=== PATIENT | male | born 1980 | race Two or more races ===

== ENCOUNTER 2019-04-06 20:44 | Emergency (ER) | payer OTHER ==
[~2019-04-06] VITALS: Ht 170.2 cm; Wt 113.6 kg
[~2019-04-06 20:44] MED LIST: VICOT
[2019-04-06] MEDS ORDERED: ACYC200C PO (22:22)
[2019-04-06 22:30] VITALS: BP 135/88
== END 2019-04-06 23:17 | disposition home or self-care (01) ==
LOC: EMS 20:45
DX: Z02.89 Encounter for other administrative examinations (principal); Z86.19 Personal history of other infectious and parasitic diseases; Z79.899 Other long term (current) drug therapy